=== PATIENT | female | born 1960 | race Caucasian/White ===

== ENCOUNTER 2024-04-26 13:51 | Emergency (ER) | payer BC, SELFPAY ==
[2024-04-26 13:52] VITALS: BP 139/97
--- NOTE | 2024-04-26 14:45 | ED.GENMED ---
History of Present Illness
General
Chief Complaint: Abdominal Pain
Source: patient
Exam Limitations: none
Time Seen by Provider: 04/26/24 14:33
Nursing documentation reviewed up to this point in time: agreed with
History of Present Illness
History of Present Illness:
Patient to ED with complaint of epigastric pain x 2 weeks. Worse after eating. States she was seen by her PCP and placed on Pantoprazole recently but has not noted any improvement. SHe had an outpatient US today which was normal. Sent to ED by
PCP for further evaluation. Denies fever/chills. vomiting. Reports nausea, occasional diarrhea. Brought self to ED for eval.
Past History
Past History
ED Past Medical History: None, Arrthythmia (SVT with ablation), Hypercholesterolemia and Other (Enlarged thyroid that the watch); Negative Asthma, HTN or NIDDM
ED Past Surgical History: Gynecological (Ovarian cyst)
Social History
Tobacco: Former smoker
Alcohol: Occasional
Drug: None
Personal:
Living: with family
Family History
Family History: Other (CAD)
Review of Systems
Review of Systems
Allergies reviewed?: Yes
All Other Systems: ROS reviewed and negative except as documented in HPI and ROS
Constitutional: Reports no symptoms
EENT: Reports no symptoms
Respiratory: Reports no symptoms
Cardiac: Reports no symptoms
ABD/GI: Reports abdominal pain and nausea
: Reports no symptoms
Musculoskeletal: Reports no symptoms
Skin: Reports no symptoms
Neurological: Reports no symptoms
Psychiatric: Reports no symptoms
Phy Exam
General Physical Exam
General Presentation: well appearing and no apparent distress
General age: appears stated age
General Skin: warm and dry
General Habitus: normal
Pulmonary Exam
Pulmonary Exam: no respiratory distress and chest non tender
Gastrointestinal Exam
Gastrointestinal Exam: normal bowel sounds, soft, no organomegaly, no pulsatile mass, non distended and no cva tenderness
Palpation: generalized: Mild tenderness
Musculoskeletal Exam
Musculoskeletal Exam: full ROM and neuro vasc intact
Skin Exam
Skin Exam: normal color, warm/dry and no rash
Psychiatric Exam
Psychiatric Exam: normal mood/affect
Course
Orders/Labs/Results
Orders:
Orders
04/26/24 14:44
CT Abd/pel W Iv And Oral Contr Urgent
Comment:
Reason For Exam: upper abd. pain
Iohexol [Omnipaque] See Protocol PO NOW STA
04/26/24 15:00
Complete Blood Count/With Diff Urgent
Comprehensive Metabolic Panel Urgent
Lipase Urgent
04/26/24 16:30
Urinalysis Reflex To Culture Urgent
Date Specimen was Collected: 04/26/24
Time Specimen was Collected: 16:29
Urine Microscopic Reflex Cult Urgent
Abnormal Lab Results
04/26/24 04/26/24
15:00 16:30
Absolute Eos (auto) 1.5 H 10^3/uL
(0-0.7)
Eosinophils % 20.0 H %
(0-6)
Ur Occult Blood Reflex Trace A
(Negative)
04/26/24 15:00
04/26/24 15:00
Vital Signs
Initial and Last Documented VS:
Initial Vital Signs
Temp Pulse Resp BP Pulse Ox
98.2 F 91 18 139/97 97
04/26/24 13:52 04/26/24 13:52 04/26/24 13:52 04/26/24 13:52 04/26/24 13:52
Last Documented Vital Signs
Temp Pulse Resp BP Pulse Ox
98.2 F 72 20 147/86 97
04/26/24 13:52 04/26/24 19:05 04/26/24 19:05 04/26/24 19:05 04/26/24 19:05
*Radiology
Radiology exam reviewed: radiology read reviewed
*Pulse Oximetry
Patient hypoxic: no
*Critical Care Note
Total Time (30-74mins, 75-104mins- exclusive of procedures): Not Applicable
Update Note
Update Note:
Labs, CT reviewed with patient. CT with possible gastritis finding. Tony lcontinue pantoprazole daily. Given number for GI follow up. She is discharged home. Given instructions on s/s to return to ED and she is agreeable to planj
ED Attending Note
-
Portions of this chart may have been created with voice recognition software.� Occasional wrong word or��sound alike� substitutions may have occurred due to the inherent limitations of voice recognition software.
Discharge Plan
Departure
Patient Disposition: Home (Routine Discharge)
Date of Disposition: 04/26/24
Time of Disposition: 17:56
Patient with high blood pressure during this ER visit?: No
Condition: Good
Covid-19: Not Applicable
Discharge Problem:
Gastritis
Instructions: Clear Liquid Diet, Gastritis (DC)
Prescriptions:
No Action
multivitamin [Multi-Day] 1 EACH tablet
1 tab PO DAILY
lorazepam 0.5 MG tablet
0.5 mg PO BID
Patient Comments:
Pt states last dose was in April when pt flew in plane.
ibuprofen [Advil] 200 MG tablet
200 mg PO Q6HPRN PRN (Reason: pain)
L.acidoph, paracasei,B. lactis 1 EACH capsule
1 ea PO DAILY
Patient Comments:
50 billion cell capsule
levofloxacin 500 MG tablet
500 mg PO DAILY Qty: 9 0RF
metronidazole 500 MG tablet
500 mg PO TID Qty: 29 0RF
oxycodone-acetaminophen 5 MG/325 MG tablet
1 tab PO Q4HPRN PRN (Reason: Pain) Qty: 10 0RF
amoxicillin-pot clavulanate 875-125 mg tablet
1 tab PO BID Qty: 20 0RF
Referrals:
Mariana Armenta MD [Family Provider] -
Thais Jones DO [Active] - Call in 1-3 days for appt
Interventions
Interventions:
*Risk Screen - Suicide Last Done: 04/26/24 13:52
*General Assessment Last Done: 04/26/24 13:52
*Neglect/Abuse Screening Last Done: 04/26/24 13:52
*Nursing Disposition Last Done: 04/26/24 19:05
DI-Hjnmpw-Upldqhgcro Assessment Last Done: 04/26/24 15:13
Discharge Date and Time
Discharge Date/Time: 04/26/24 19:07
Print Language: YI
[2024-04-26] MEDS: OMNIPAQUE 50 ML PO (14:53)
[2024-04-26 15:13] LABS: % Basophils 0.8 % (0-2); % Immature Granulocytes 0.1 % (0-0.5); % Lymphocytes 24.7 % (20.5-51.1); % Monocytes 6.7 % (1.7-9.3); % Neutrophils 47.7 % (42.2-75.2); Absolute Basophils 0.1 10^3/uL (0-0.2); Absolute Eosinophils 1.5 10^3/uL (0-0.7); Absolute Lymphocytes 1.9 10^3/uL (1.2-3.4); Absolute Monocytes 0.5 10^3/uL (0.1-0.6); Absolute Neutrophils 3.6 10^3/uL (1.4-6.5); Hematocrit 37.4 % (37.0-47.0); Mean Corp Hgb Conc. 34.8 g/dL (33.0-37.0); Mean Corpuscular Hgb 30.2 pg (27.0-31.0); Mean Corpuscular Volume 86.8 fL (81.0-99.0); Mean Platelet Volume 8.8 fL (7.4-10.4); Nucleated Red Blood Cells % 0 %; Platelet Count 216 10^3/uL (130-400); Red Blood Cell Count 4.31 10^6/uL (4.20-5.40); Red Cell Dist. Width 13.2 % (11.5-14.5); White Blood Cell Count 7.5 10^3/uL (4.8-10.8)
[2024-04-26 15:25] LABS: ALT (SGPT) 32 U/L (0-35); AST (SGOT) 29 U/L (14-36); Albumin 4.4 g/dl (3.5-5.0); Alkaline Phosphatase 70 U/L (38-126); Blood Urea Nitrogen 15 mg/dl (7-17); Calcium 9.5 mg/dl (8.4-10.2); Carbon Dioxide 25 mmol/L (22-30); Chloride 102 mmol/L (98-107); Glucose 91 mg/dl (70-99); Lipase 107 U/L (23-300); Potassium 3.6 mmol/L (3.5-5.1); Sodium 135 mmol/L (135-145); Total Bilirubin 0.6 mg/dl (0.2-1.3); Total Protein 6.7 g/dl (6.3-8.2); eGFR > 60.00
[2024-04-26 16:39] LABS: Urine Albumin Negative (Neg - Trace); Urine Bilirubin Negative (Negative); Urine Character Clear (Clear); Urine Color Yellow; Urine Glucose Negative (Negative); Urine Ketone Negative (Negative); Urine Leukocyte Negative (Negative); Urine Nitrite Negative (Negative); Urine Occult Blood Trace (Negative); Urine Specific Gravity 1.015 (<1.030); Urine Urobilinogen Negative (Neg - 1+)
[2024-04-26 17:19] LABS: Urine Red Blood Cell 0-2 /HPF (0-2); Urine White Cell 0-2 /HPF (0-5)
[2024-04-26 19:05] VITALS: BP 147/86
== END 2024-04-26 19:07 | disposition home or self-care (01) ==
LOC: EMR 13:51
PROVIDERS: Nurse Practitioner; EMERGENCY PHYSICIAN Emergency Medicine; FAMILY PHYSICIAN Family Medicine
DX: K29.00 Acute gastritis without bleeding (principal); R10.13 Epigastric pain; R11.0 Nausea; E78.00 Pure hypercholesterolemia, unspecified; K57.92 Diverticulitis of intestine, part unspecified, without perforation or abscess without bleeding; M19.90 Unspecified osteoarthritis, unspecified site; Z85.828 Personal history of other malignant neoplasm of skin; Z87.891 Personal history of nicotine dependence; Z88.5 Allergy status to narcotic agent; Z88.8 Allergy status to other drugs, medicaments and biological substances
CPT/HCPCS: 99284; 74177; 76700; 80053; 81003; 81015; 83690; 85025; Q9967

== ENCOUNTER → 2024-07-08 08:06 | Outpatient (REF) | payer BC, SELFPAY | LOC: WDC 08:06 | PROVIDERS: ATTENDING PHYSICIAN Nurse Practitioner Adult Health; FAMILY PHYSICIAN Family Medicine | DX: Z12.31 Encounter for screening mammogram for malignant neoplasm of breast (principal) | CPT/HCPCS: 77063; 77067 ==

== ENCOUNTER → 2025-07-12 08:12 | Outpatient (REF) | payer BC, SELFPAY | LOC: WDC 08:12 | PROVIDERS: ATTENDING PHYSICIAN Nurse Practitioner Adult Health; FAMILY PHYSICIAN Family Medicine | DX: Z12.31 Encounter for screening mammogram for malignant neoplasm of breast (principal) | CPT/HCPCS: 77063; 77067 ==

== ENCOUNTER 2025-07-14 14:00 | Emergency (ER) | payer BC, SELFPAY ==
[2025-07-14 14:02] VITALS: BP 171/106
[2025-07-14 14:31] LABS: Hematocrit 38.6 % (37.0-47.0); Hemoglobin 13.0 g/dL (12.0-16.0); Mean Corp Hgb Conc. 33.7 g/dL (33.0-37.0); Mean Corpuscular Volume 88.1 fL (81.0-99.0); Nucleated Red Blood Cells % 0 %; Platelet Count 174 10^3/uL (130-400); Red Cell Dist. Width 13.5 % (11.5-14.5)
[2025-07-14 14:44] LABS: ALT (SGPT) 26 U/L (0-35); AST (SGOT) 23 U/L (14-36); Albumin 4.5 g/dl (3.5-5.0); Alkaline Phosphatase 83 U/L (38-126); Blood Urea Nitrogen 15 mg/dl (7-17); Calcium 9.3 mg/dl (8.4-10.2); Carbon Dioxide 24 mmol/L (22-30); Chloride 105 mmol/L (98-107); Glucose 98 mg/dl (70-99); Lipase 71 U/L (23-300); Potassium 3.8 mmol/L (3.5-5.1); Sodium 135 mmol/L (135-145); Total Protein 7.4 g/dl (6.3-8.2); eGFR > 60.00
--- NOTE | 2025-07-14 18:20 | ED.GENMED ---
History of Present Illness
General
Chief Complaint: Abdominal Symptoms
Source: patient
Exam Limitations: none
Time Seen by Provider: 07/14/25 17:45
History of Present Illness
History of Present Illness:
65-year-old female presents complaining of diffuse abdominal pain starting 3 days ago. Initially she thought it was another diverticulitis flare however she now notes more diffuse pain which is not typical of her typical diverticulitis. She was
presumed to have diverticulitis at the beginning of this month and finished a 10-day course of Cipro and Flagyl. She states her symptoms went away. She has no prior abdominal surgical history. No fever. No urinary symptoms. No flank pain. The
pain is constant unrelieved with Advil and Gas-X.
Past History
Past History
ED Past Medical History: None, Arrthythmia (SVT with ablation), Hypercholesterolemia and Other (Enlarged thyroid that the watch); Negative Asthma, HTN or NIDDM
ED Past Surgical History: Gynecological (Ovarian cyst)
Social History
Tobacco: Former smoker
Alcohol: Occasional
Drug: None
Personal:
Living: with family
Family History
Family History: Other (CAD)
Phy Exam
Physical Exam
Physical Exam:
General: Well-appearing female no respiratory distress
HEENT normal cephalic atraumatic
Heart: Regular rate and rhythm
Lungs: Clear no wheeze
Abdomen is soft diffusely tender no guarding nondistended
Extremities: No cyanosis
Course
Orders/Labs/Results
Orders:
Orders
07/14/25 14:16
Complete Blood Count/With Diff Urgent
Comprehensive Metabolic Panel Urgent
Lipase Urgent
07/14/25 18:00
CT Abd/pelvis W Iv Cont Urgent
Comment:
Reason For Exam: abdominal pain
07/14/25 19:08
Urinalysis Reflex To Culture Urgent
Date Specimen was Collected: 07/14/25
Time Specimen was Collected: 18:16
Urine Microscopic Reflex Cult Urgent
07/14/25 20:43
Amoxicillin 875 mg/Clav 125 mg [Augmentin 875 mg/125 mg] 1 tablet PO NOW STA
Abnormal Lab Results
07/14/25 07/14/25
14:16 19:08
Absolute Monos (auto) 0.9 H 10^3/uL
(0.1-0.6)
Lymphocytes % 17.9 L %
(20.5-51.1)
Monocytes % 10.3 H %
(1.7-9.3)
Ur Occult Blood Reflex 1+ A
(Negative)
Urine RBC 7-10 A /HPF
(0-2)
Urine Bacteria (Reflex) Few A
(Negative)
07/14/25 14:16
07/14/25 14:16
Vital Signs
Initial and Last Documented VS:
Initial Vital Signs
Temp Pulse Resp BP Pulse Ox
98.2 F 98 16 171/106 98
07/14/25 14:02 07/14/25 14:02 07/14/25 14:02 07/14/25 14:02 07/14/25 14:02
Last Documented Vital Signs
Temp Pulse Resp BP Pulse Ox
98.2 F 95 20 147/84 97
07/14/25 14:02 07/14/25 20:01 07/14/25 20:01 07/14/25 20:01 07/14/25 20:01
MDM/Problems Addressed
Differential Diagnosis Includes:
Abdominal pain. Consider constipation versus bowel obstruction versus diverticulitis or abscess
Will check labs urinalysis and CT.
*Pulse Oximetry
SaO2: 98
Oxygen Mode of Delivery: Room air
Patient hypoxic: no
*Critical Care Note
Total Time (30-74mins, 75-104mins- exclusive of procedures): Not Applicable
Update Note
Update Note:
CT demonstrates acute uncomplicated sigmoid diverticulitis. Patient most recently had Flagyl and Cipro about 4 weeks ago. She prefers not to have this regimen again. Will start her on Augmentin. There is no abscess or perforation. Labs appear
well. She is comfortable otherwise without any indication for admission. Return precautions were given. She has an appointment with GI in 2 weeks
ED Attending Note
-
Portions of this chart may have been created with voice recognition software.� Occasional wrong word or��sound alike� substitutions may have occurred due to the inherent limitations of voice recognition software.
Discharge Plan
Departure
Patient Disposition: Home (Routine Discharge)
Date of Disposition: 07/14/25
Time of Disposition: 20:47
Patient with high blood pressure during this ER visit?: No
Discharge Problem:
Diverticulitis large intestine w/o perforation or abscess w/o bleeding
Instructions: Clear Liquid Diet, Diverticulitis (DC)
Prescriptions:
New
amoxicillin-pot clavulanate 875-125 mg tablet
1 tab PO BID Qty: 19 0RF
No Action
multivitamin [Multi-Day] 1 EACH tablet
1 tab PO DAILY
lorazepam 0.5 MG tablet
0.5 mg PO BID
Patient Comments:
Pt states last dose was in April when pt flew in plane.
ibuprofen [Advil] 200 MG tablet
200 mg PO Q6HPRN PRN (Reason: pain)
L.acidoph,paracasei,B.animalis 1 EACH capsule
1 ea PO DAILY
Patient Comments:
50 billion cell capsule
levofloxacin 500 MG tablet
500 mg PO DAILY Qty: 9 0RF
metronidazole 500 MG tablet
500 mg PO TID Qty: 29 0RF
oxycodone-acetaminophen 5 MG/325 MG tablet
1 tab PO Q4HPRN PRN (Reason: Pain) Qty: 10 0RF
amoxicillin-pot clavulanate 875-125 mg tablet
1 tab PO BID Qty: 20 0RF
Referrals:
Mariana Armenta MD [Family Provider, Family Practice]
Activity Restrictions/Additional Instructions:
Continue drinking plenty clear liquids. Consider continuing probiotics and take antibiotics as directed. Return here for increasing pain fever or vomiting. Follow-up with GI as planned otherwise
Interventions
Interventions:
*Risk Screen - Suicide Last Done: 07/14/25 14:02
*Neglect/Abuse Screening Last Done: 07/14/25 14:02
XE-Wponna-Glaftmtwsc Assessment Last Done: 07/14/25 18:00
Discharge Date and Time
Print Language: BELARUSIAN
[2025-07-14 19:26] LABS: Urine Character Clear (Clear)
[2025-07-14 19:37] LABS: Urine Squamous Cell 0-2 /LPF (Few)
[2025-07-14 19:40] LABS: Urine White Cell 0-2 /HPF (0-5)
[2025-07-14 20:01] VITALS: BP 147/84
[2025-07-14] MEDS: AUGMENTIN 875 MG/125 MG 1 TABLET PO (20:49)
== END 2025-07-14 20:58 | disposition home or self-care (01) ==
LOC: EMR 14:00
PROVIDERS: Emergency Medicine; Physician Assistant; EMERGENCY PHYSICIAN Emergency Medicine; FAMILY PHYSICIAN Family Medicine
DX: K57.32 Diverticulitis of large intestine without perforation or abscess without bleeding (principal); I47.10 Supraventricular tachycardia, unspecified; E78.00 Pure hypercholesterolemia, unspecified; E04.9 Nontoxic goiter, unspecified; Z82.49 Family history of ischemic heart disease and other diseases of the circulatory system; Z87.891 Personal history of nicotine dependence
CPT/HCPCS: 99284; 74177; 80053; 81003; 81015; 83690; 85025; Q9967